=== PATIENT | female | born 1990 | race Two or more races ===

== ENCOUNTER 2023-08-25 08:08 | Inpatient (IN) | payer OTHER ==
[~2023-08-25] VITALS: Ht 157.5 cm; Wt 71.7 kg
[2023-08-26 11:44] LABS: HEMATOCRIT 31.2 % (36.0-45.00); HEMOGLOBIN 9.8 g/dL (12.0-15.00); MEAN CELL VOLUME 69.8 fL (80.00-100.00); MEAN CORPUSCULAR HGB CONC 31.5 g/dl (32.0-36.0); PLATELET COUNT 314 K/uL (150-450); RED BLOOD COUNT 4.47 M/uL (4.00-6.00); RED CELL DISTRIBUTION WIDTH 17.3 % (11.5-14.5)
[2023-08-26 11:54] LABS: PH,URINE 7.5 (5.0-8.0); URINE APPEARANCE Clear; URINE BACTERIA 81.8 uL (0.0-1933); URINE BILIRRUBIN Negative (NEGATIVE); URINE BLOOD Negative; URINE COLOR Yellow; URINE EPITHELIAL CELLS 6.1 uL (0.0-38.8); URINE GLUCOSE Negative (NEGATIVE); URINE LEUKOCYTE Negative; URINE NITRATE Negative; URINE PROTEIN Negative (NEGATIVE); URINE UROBILINOGEN 0.2 E.U./dl; URINE WBC 2.3 uL (0.0-23.2)
[2023-08-26 12:08] LABS: INR 1.11; PARTIAL THROMBOPLASTIN TIME 28.2 SECONDS (22.0-34.0); PROTHROMBIN TIME 11.6 SECONDS (9.0-11.5)
[2023-08-26 12:13] LABS: ALBUMIN 3.8 gm/dL (3.4-5.0); BILIRUBIN TOTAL 0.63 mg/dL (0.3-1.2); CALCIUM 8.8 mg/dL (8.5-10.1); CREATININE SERUM 0.71 mg/dL (0.55-1.02); GFR 94.8; GLOBULINA 3.6 G/DL (2.4-3.5); POTASSIUM 3.83 mEq/L (3.5-5.1); TOTAL PROTEIN 7.4 gm/dL (6.4-8.2)
[2023-08-31 16:26] LABS: HEMATOCRIT 27.4 % (36.0-45.00); HEMOGLOBIN 9.2 g/dL (12.0-15.00); MEAN CORPUSCULAR HEMOGLOBIN 22.7 pg (27.00-32.0); MEAN CORPUSCULAR HGB CONC 33.5 g/dl (32.0-36.0); PLATELET COUNT 273 K/uL (150-450); RED BLOOD COUNT 4.04 M/uL (4.00-6.00); RED CELL DISTRIBUTION WIDTH 17.3 % (11.5-14.5)
[2023-08-31 16:27] LABS: MEAN CELL VOLUME 67.8 fL (80.00-100.00)
[2023-09-01] MEDS ORDERED: GABAPENTIN300 MG PO (07:03)
[2023-09-01] MEDS ORDERED: SIMETHICONE125 M1 PO (07:03)
[2023-09-01] MEDS ORDERED: IBUPROFEN800 MG PO (07:03)
== END 2023-09-01 09:00 | disposition home or self-care (01) | DRG 743 ==
LOC: O/R 08-31 05:22 → OB/GYN 08-31 07:00
PROVIDERS: ADMIT Obstetrics & Gynecology; ATTEND Obstetrics & Gynecology
PROC: 0UB90ZZ Excision of Uterus, Open Approach (ICD-10-PCS; principal; 2023-08-31 07:00)
DX: D25.9 Leiomyoma of uterus, unspecified (principal); Z20.822 Contact with and (suspected) exposure to COVID-19

== ENCOUNTER 2025-03-31 04:14 | Inpatient (IN) | payer OTHER ==
[2025-03-31] VITALS (8 sets, daily range): BP systolic 143–170; BP diastolic 85–102
[~2025-03-31] VITALS: Ht 157.5 cm; Wt 2.3 kg
[~2025-03-31 04:14] MED LIST: GABAPENTIN300 MG PO; IBUPROFEN800 MG PO; SIMETHICONE125 M1 PO
[2025-03-31] MEDS ORDERED: PRENATAL TABLE1 EAC1 PO (05:12)
[2025-03-31] MEDS ORDERED: LABETALOL HCL100 MG PO (05:13)
[2025-03-31] MEDS ORDERED: NIFEDIPINE20 MG PO (05:13)
[2025-03-31] MEDS ORDERED: CEFAZOLIN SODIUM 1,000 MG VIAL IV SCH ×2 (05:30→18:00)
[2025-03-31] MEDS ORDERED: RINGERS SOLUTION,LACTATED 1,000 ML IV SCH (05:30)
[2025-03-31] MEDS ORDERED: hydrALAZINE HCL 20 MG VIAL ONE (07:13)
[2025-03-31] MEDS ORDERED: hydrALAZINE HCL 20 MG VIAL IV NR (07:15)
[2025-03-31] MEDS ORDERED: hydrALAZINE HCL 20 MG VIAL IV ONE (08:00)
[2025-03-31] MEDS ORDERED: OXYTOCIN 10 UNITS/ML VIAL ONE (10:08)
[2025-03-31] MEDS ORDERED: ERYTHROMYCIN BASE OPHT 1GM EACH TUBE OP ONE (10:08)
[2025-03-31] MEDS ORDERED: CARBOPROST TROMETHAMINE 250 MCG/ML AMPUL IM ONE (10:53)
[2025-03-31] MEDS ORDERED: KETOROLAC TROMETHAMINE 30 MG VIAL IM SCH (12:00)
[2025-03-31] MEDS ORDERED: PROMETHAZINE HCL 25 MG/ML AMPUL IV SCH (12:00)
[2025-03-31] MEDS ORDERED: MORPHINE SULFATE 4 MG/ML VIAL IV ONE (12:45)
[2025-03-31] MEDS ORDERED: KETOROLAC TROMETHAMINE 30 MG VIAL ONE ×2 (13:19→13:21)
[2025-03-31] MEDS ORDERED: PROMETHAZINE HCL 50 MG/ML AMPUL IM ONE (13:19)
[2025-03-31] MEDS ORDERED: KETOROLAC TROMETHAMINE 30 MG VIAL IV ONE (13:30)
[2025-04-01] VITALS: BP 130/80
[2025-04-01 04:30] VITALS: BP 146/86
[2025-04-01 07:55] LABS: BASO % 0.2 % (0.1-1.2); EOS # 0.08 (0.04-0.54); EOS % 0.5 % (0.7-7.0); HEMATOCRIT 27.7 % (34.1-44.9); HEMOGLOBIN 9.8 g/dL (11.2-15.7); LYMPH % 10.8 % (19.3-53.1); MEAN CORPUSCULAR HEMOGLOBIN 30.1 pg (25.6-32.2); MONO # 1.42 (0.24-0.82); MONO % 8.5 % (4.7-12.5); NEUT # 12.94 (1.56-6.13); NEUT % 77.8 % (34.0-71.1); PLATELET COUNT 162 K/uL (163-369); RED BLOOD COUNT 3.26 M/uL (3.93-5.22); RED CELL DISTRIBUTION WIDTH 13.4 % (11.6-14.4)
[2025-04-01] MEDS ORDERED: NAPROXEN 500 MG TABLET PO SCH (08:12)
[2025-04-01 09:25] VITALS: BP 145/81
[2025-04-01] MEDS ORDERED: IRON FUM,PS/FOLIC/BCOMP,C NO.9 1 CAP CAPSULE PO STA (11:32)
[2025-04-01] MEDS ORDERED: IRON FUM,PS/FOLIC/BCOMP,C NO.9 1 CAP CAPSULE PO SCH (17:00)
[2025-04-01 18:14] VITALS: BP 133/89
[2025-04-01 20:15] VITALS: BP 145/88
[2025-04-02] VITALS: BP 130/80
[2025-04-02 05:00] VITALS: BP 127/81
[2025-04-02 06:05] LABS: BASO % 0.2 % (0.1-1.2); EOS # 0.16 (0.04-0.54); HEMOGLOBIN 9.5 g/dL (11.2-15.7); LYMPH # 2.25 (1.18-3.74); LYMPH % 13.5 % (19.3-53.1); MEAN CORPUSCULAR HEMOGLOBIN 30.5 pg (25.6-32.2); MONO # 1.44 (0.24-0.82); MONO % 8.7 % (4.7-12.5); NEUT # 12.29 (1.56-6.13); PLATELET COUNT 170 K/uL (163-369); RED BLOOD COUNT 3.11 M/uL (3.93-5.22); RED CELL DISTRIBUTION WIDTH 13.4 % (11.6-14.4)
[2025-04-02 06:06] LABS: HEMATOCRIT 26.6 % (34.1-44.9)
[2025-04-02 08:00] VITALS: BP 132/83
[2025-04-02] MEDS ORDERED: IRON FUM,PS/FOLIC/BCOMP,C NO.9 1 CAP CAPSULE PO SCH (17:00)
== END 2025-04-02 12:54 | disposition home or self-care (01) | DRG 788 ==
LOC: LDR 04:14 → EDLOC 04:14 → OB/GYN 04:14 → LDR 05:12 → OB/GYN 11:04
PROVIDERS: ADMIT Specialist; ATTEND Specialist
PROC: 4A1HXCZ Monitoring of Products of Conception, Cardiac Rate, External Approach (ICD-10-PCS; 2025-03-31)
PROC: 10D00Z1 Extraction of Products of Conception, Low, Open Approach (ICD-10-PCS; principal; 2025-03-31 11:15)
DX: O34.29 Maternal care due to uterine scar from other previous surgery (principal); O69.81X0 Labor and delivery complicated by cord around neck, without compression, not applicable or unspecified; Z3A.37 37 weeks gestation of pregnancy; Z37.0 Single live birth